=== PATIENT | female | born 2005 | race Caucasian/White ===

== ENCOUNTER → 2023-06-04 | Outpatient (REF) | payer OTHER ==
[2023-06-04 18:21] LABS: CHLAMYDIA DNA AMPLIFICATION NEGATIVE (NEGATIVE); GC DNA AMPLIFICATION NEGATIVE (NEGATIVE)
== END ==
LOC: M LAB REF 16:22
PROVIDERS: ATTEND Physician Assistant
DX: L29.3 Anogenital pruritus, unspecified (principal)